=== PATIENT | female | born 1965 | race Asian ===

== ENCOUNTER 2016-12-06 17:49 | Emergency (ER) | payer BC, OTHER ==
--- NOTE | 2016-12-06 18:51 | XRAY Preliminary Report ---
Exam: XR Knee 4 View RT IMPRESSION: 1. Minimal degenerative changes. 2. Small knee effusion. 3. No acute bony abnormality. [facility] SITE ID: [id number]
--- NOTE | 2016-12-06 18:54 | XRAY Report ---
EXAM: RIGHT KNEE RADIOGRAPHY EXAM DATE: 12/06/2016 06:27 PM. CLINICAL HISTORY: Medial right knee pain post-twisting injury. COMPARISON: None. TECHNIQUE: 4 views. FINDINGS: Bones: Normal. No fractures or bone lesions. Joints: Normal alignment. Minimal osteophytosis in the lateral and patellofemoral compartments. Joint spaces are maintained. A small suprapatellar effusion is present. Soft Tissues: Normal. No soft tissue swelling. IMPRESSION: 1. Minimal degenerative changes. 2. Small knee effusion. 3. No acute bony abnormality. [facility] Referring Provider Line: [phone] SITE ID: [id number]
--- NOTE | 2016-12-06 19:56 | ED Physician Documentation ---
PD HPI LOWER EXT INJURY - Stated complaint Stated Complaint: RT LEG PX - Chief complaint Chief Complaint: Ext Problem - History obtained from History obtained from: Patient - History of Present Illness PD HPI LOW EXT INJURY LOCATION: Right, Knee Where injury occurred: Work Timing - onset: Yesterday Timing - duration: Days (1) Timing - details: Abrupt onset Pain level max: 6 Pain level now: 4 Improved by: Rest, Ice, Immobilization Worsened by: Moving, Palpating Associated symptoms: Swelling. No: Weakness, Numbness, Tingling - Additional information Additional information: states ibuprofen helped. Able to bear weight with pain. 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: Hysterectomy - Present Medications Home Medications: Ambulatory Orders Medication Instructions Recorded Confirmed Escitalopram [Lexapro] 10 mg PO DAILY 12/06/16 12/06/16 Insulin Glargine,Hum.rec.anlog 18 units SQ DAILY 12/06/16 12/06/16 [Lantus] Insulin Lispro [Humalog] 3 units SQ TID 12/06/16 12/06/16 Lisinopril 2.5 mg PO DAILY 12/06/16 12/06/16 Tramadol HCl 50 mg PO Q6H PRN #14 tablet 12/06/16 hydrOXYzine PAMOATE [Vistaril] 50 mg PO QID PRN 12/06/16 12/06/16 - Allergies Allergies/Adverse Reactions: Allergies Allergy/AdvReac Type Severity Reaction Status Date / Time acetaminophen [From Tylenol] Allergy Anaphylaxis Verified 12/06/16 18:00 aspirin Allergy Anaphylaxis Verified 12/06/16 18:00 - Social History Does the pt smoke?: No Smoking Status: Never smoker Does the pt drink ETOH?: No Does the pt have substance abuse?: No - Immunizations Immunizations are current?: Yes PD ED PE NORMAL - Vitals Vital signs reviewed: Yes - General General: Alert and oriented X 3, No acute distress, Well developed/nourished - Neck Neck: Supple, no meningeal sign - Derm Derm: Warm and dry - Extremities Extremities: Other (R knee - ACL, MCL, LCL, PCL intact. Mild joint effusion present. NVI. +kunal test.) - Neuro Neuro: Alert and oriented X 3 - Psych Psych: Normal mood, Normal affect Results - Vitals Vitals: Vital Signs - 24 hr 12/06/16 12/06/16 17:58 20:27 Temperature 36.4 C L 36.8 C Heart Rate 64 60 Respiratory 18 18 Rate Blood Pressure 155/81 H 136/71 H O2 Saturation 98 100 Oxygen O2 Source Room air - Rads (name of study) Right knee x-ray Radiology: Prelim report reviewed, EMP read contemporaneously, See rad report ( Minimal degenerative changes. Small knee effusion. No acute bony abnormality. ) PD MEDICAL DECISION MAKING - ED course Complexity details: reviewed results, re-evaluated patient, considered differential, d/w patient, d/w family ED course: Patient is a 51-year-old female who presents to the emergency department with a right knee injury. Concern for possible meniscus injury. She is very well- appearing, nontoxic. Afebrile. No evidence for fracture or septic joint. Placed in a knee immobilizer, given crutches and will refer her to her primary care provider for further evaluation and care. Patient and family counseled regarding signs and symptoms for which I believe and urgent re-evaluation would be necessary. Patient with good understanding of and agreement to plan and is comfortable going home at this time This document was made in part using voice recognition software. While efforts are made to proofread this document, sound alike and grammatical errors may occur. L and I paperwork filled out Departure - Departure Disposition: 01 Home, Self Care Clinical Impression: Right knee sprain Qualifiers: Encounter type: initial encounter Involved ligament of knee: unspecified ligament Qualified Code(s): S83.91XA - Sprain of unspecified site of right knee , initial encounter Condition: Good Instructions: ED Meniscal Injury Knee Poss Follow-Up: Catalina Snow ARNP [Primary Care Provider] - Within 3 Days Prescriptions: Tramadol HCl 50 mg PO Q6H PRN #14 tablet PRN Reason: knee pain Comments: Return if you worsen. Wear the knee immobilizer for the next 2-3 days as needed for comfort. You may take this off at home to ice the leg and gently move the leg. Do not wear this for more than 2-3 days Discharge Date/Time: 12/06/16 20:27
[2016-12-06] MEDS ORDERED: traMADol 50 MG TABLET PO STA (20:03)
[2016-12-06] MEDS ORDERED: traMADol 50 MG TABLET PO ONE (20:05)
[2016-12-06 20:29] VITALS: BP 136/71
== END 2016-12-06 20:27 | disposition home or self-care (01) ==
LOC: ED 17:49
DX: S83.91XA Sprain of unspecified site of right knee, initial encounter (principal); X58.XXXA Exposure to other specified factors, initial encounter; Y93.89 Activity, other specified; Y92.89 Other specified places as the place of occurrence of the external cause; Y99.0 Civilian activity done for income or pay; M25.461 Effusion, right knee; I10 Essential (primary) hypertension; E11.9 Type 2 diabetes mellitus without complications; Z79.4 Long term (current) use of insulin; M17.11 Unilateral primary osteoarthritis, right knee
CPT/HCPCS: 1040M; 73564; 99283; A9270

== ENCOUNTER 2022-10-17 08:13 | Outpatient (CLI) | payer BC ==
--- NOTE | 2022-10-22 09:19 | Mammography Report ---
BILATERAL DIGITAL SCREENING MAMMOGRAM 3D/2D WITH EXAGGERATED CC: 10/17/2022 CLINICAL: Routine screening. Family history of breast cancer. Comparison is made to exams dated: 09/06/2021 mammogram, 08/17/2020 mammogram, and 07/06/2019 mammogram - [facility]. There are scattered areas of fibroglandular density in both breasts (category b / 25%-50% glandular t issue). No significant masses, calcifications, or other findings are seen in either breast. There has been no significant interval change. IMPRESSION: NEGATIVE There is no mammographic evidence of malignancy. A 1 year screening mammogram is recommended. Based on the Tyrer Cuzick model (a risk assessment model) the patients lifetime risk is 5.3% and her 10 year risk is 1.8%. According to the ACR, ACS, and NCCN guidelines, an annual breast MRI exam reyna g with mammogram is recommended if the patients lifetime risk is 20% or greater. This exam was interpreted at Station ID: [id number]. NOTE: For mammograms, a report in lay terms will be sent to the patient. Approximately 15% of breast malignancies will not be visualized mammographically. In the management of a palpable breast mass, a negative mammogram must not discourage biopsy of a clinically suspicious lesion. Electronically Signed By: Prakash [email or web address]/goyo:10/21/2022 17:11:42 letter sent: No_Letter ACR BI-RADS Category 1: Negative 3341F PARENCHYMAL PATTERN: (A) - The breast(s) demonstrate(s) scattered fibroglandular densities. BI-RADS CATEGORY: (1) - 1 Mammogram [id number] 1 year screening LATERALITY: (B)
== END 2022-10-17 08:14 | disposition home or self-care (01) ==
LOC: DI.S 08:13
DX: Z12.31 Encounter for screening mammogram for malignant neoplasm of breast (principal); Z80.3 Family history of malignant neoplasm of breast

== ENCOUNTER 2023-07-30 11:07 | Outpatient (CLI) | payer BC ==
[2023-07-30 19:55] LABS: ESTIMATED AVERAGE GLUCOSE 160 mg/dL (70-100); HEMOGLOBIN A1c% 7.2 % (4.27-6.07)
== END 2023-07-30 11:08 | disposition home or self-care (01) ==
LOC: LAB.S 11:07
PROVIDERS: ATTEND Student in an Organized Health Care Education/Training Program
DX: E11.65 Type 2 diabetes mellitus with hyperglycemia (principal); Z79.4 Long term (current) use of insulin
CPT/HCPCS: 36415; 83036